=== PATIENT | female | born 2000 | race Caucasian/White ===

== ENCOUNTER 2022-11-07 11:25 | Emergency (ER) | payer BC ==
[~2022-11-07] VITALS: Ht 157.5 cm; Wt 54.4 kg
[2022-11-07 11:54] VITALS: BP 102/72; TEMP 98.2; O2SAT 98
[2022-11-07] MEDS ORDERED: IBUPROFEN 600 MG TABLET PO ONE (12:30)
[2022-11-07] MEDS ORDERED: METOCLOPRAMIDE HCL 10 MG TABLET PO ONE (12:30)
[2022-11-07] MEDS ORDERED: METO-295 PO (12:34)
[2022-11-07] MEDS ORDERED: METOCLOPRAMIDE HCL 10 MG TABLET ONE (12:43)
[2022-11-07] MEDS ORDERED: IBUPROFEN 600 MG TABLET ONE (12:43)
== END 2022-11-07 12:52 | disposition home or self-care (01) ==
LOC: ER 11:25
DX: R51.9 Headache, unspecified (principal)
CPT/HCPCS: J8597